=== PATIENT | female | born 1970 | race American Indian/Alaskan Native ===

== ENCOUNTER 2018-11-16 11:28 | Emergency (ER) | payer MEDICAID ==
[2018-11-16 11:42] VITALS: RESP 18
[2018-11-16 11:43] VITALS: BMI 34.3
--- NOTE | 2018-11-16 12:01 | ED PDOC ---
Arrival/HPI - General Chief Complaint: Trauma Time Seen by Provider: 11/16/18 11:43 Historian: Patient - History of Present Illness Narrative History of Present Illness (Text): 11/16/18 11:58 A 48 year old female presents to the emergency department complaining of injuries s/p slip and fall prior to arrival. Patient reports states she was at [employer] and she slipped on wet floor while there, injuring her left hip/back/neck/hand. Patient denies any head trauma, LOC, numbness/tingling, or any other complaints at this time. Admits to smoking and occasional drinking. Time/Duration: Prior to Arrival Associated Symptoms (Text): 11/16/18 13:17 Mechanical fall on a wet floor at [employer] just prior to arrival injuring her neck back left hand and left hip. No head trauma or loss of consciousness. Past Medical History - Provider Review Nursing Documentation Reviewed: Yes - Infectious Disease Hx of Infectious Diseases: None - Reproductive Menopause: No - Pulmonary Hx Bronchitis: Yes - Musculoskeletal/Rheumatological Hx Herniated Disk: Yes - Psychiatric Hx Substance Use: No - Surgical History Hx Section: Yes - Anesthesia Hx Anesthesia: Yes Hx Anesthesia Reactions: No - Suicidal Assessment Feels Threatened In Home Enviroment: No Family/Social History - Physician Review Nursing Documentation Reviewed: Yes Family/Social History: No Known Family HX Smoking Status: Never Smoked Hx Alcohol Use: No Hx Substance Use: No Allergies/Home Meds Allergies/Adverse Reactions: Allergies No Known Allergies Allergy (Verified 11/15/18 17:26) Review of Systems - Physician Review All systems were reviewed & negative as marked: Yes - Review of Systems Constitutional: absent: Other (no head trauma) Respiratory: absent: SOB Cardiovascular: absent: Chest Pain Musculoskeletal: Back Pain (left-side), Neck Pain (left-side), Other (left-side pain to hip and hand as well) Neurological: absent: Headache, Dizziness, Other (no LOC, no numbness/tingling) Physical Exam Vital Signs Reviewed: Yes Vital Signs Temp Pulse Resp BP Pulse Ox 11/16/18 11:41 98.1 F 81 18 118/80 99 Temperature: Afebrile Blood Pressure: Normal Pulse: Regular Respiratory Rate: Normal Appearance: Positive for: Well-Appearing, Non-Toxic, Comfortable Pain Distress: None Mental Status: Positive for: Alert and Oriented X 3 - Systems Exam Head: Present: Atraumatic, Normocephalic Mouth: Present: Moist Mucous Membranes Pharnyx: No: ERYTHEMA, EXUDATE, TONSILS ENLARGED Neck: Present: Normal Range of Motion, Paraspinal Tenderness (left-side). No: MIDLINE TENDERNESS Respiratory/Chest: Present: Clear to Auscultation, Good Air Exchange. No: Respiratory Distress, Accessory Muscle Use Cardiovascular: Present: Regular Rate and Rhythm, Normal S1, S2. No: Murmurs Abdomen: No: Tenderness, Distention, Peritoneal Signs Back: Present: Paraspinal Tenderness (left-side), Other (mild trapezius left- side tenderness). No: Midline Tenderness, Pain with Leg Raise Upper Extremity: Present: Normal ROM, NORMAL PULSES, Tenderness (mild left dorsal hand tenderness, normal ROM, no skin changes), Neurovascularly Intact. No: Edema, Swelling, Erythema, Deformity Lower Extremity: Present: NORMAL PULSES, Normal ROM (hip), Tenderness (mild left lateral hip tenderness), Neurovascularly Intact, Other (normal weight bearing to hip, no skin changes). No: Edema, CALF TENDERNESS, Swelling, Erythema, Deformity Neurological: Present: GCS=15, CN II-XII Intact, Speech Normal, Motor Func Grossly Intact Skin: Present: Warm, Dry, Normal Color. No: Rashes Psychiatric: Present: Alert, Oriented x 3, Normal Insight, Normal Concentration Medical Decision Making ED Course and Treatment: 11/16/18 12:03 Impression: 48 year old female with left hip/back/neck/hand pain s/p slip and fall. Physical exam shows paraspinal tenderness to neck/back; mild trapezius left-side tenderness; mild left dorsal hand tenderness with no skin changes and normal ROM; mild left lateral hip tenderness with no skin changes, normal weight bearing, normal ROM; no other acute findings on examination. Plan: -- Cervical Spinal X-Ray -- Left Hand X-Ray -- Left Hip X-Ray -- Lumbar Spinal X-Ray -- Pelvis X-Ray -- Toradol -- POC Urine Test Progress Notes: - RAD Interpretation Radiology Orders: 11/16/18 11:50 CERVICAL SPINE >18YR W/OBLIQUE [RAD] Stat LS SPINE WITH OBL > 18 YRS OLD [RAD] Stat 11/16/18 11:51 HAND LEFT 3 VIEWS ROUTINE [RAD] Stat Hip Left [HIP MIN 2V W/ PELVIS LT] [RAD] Stat 11/16/18 11:53 PELVIS ONE VIEW [RAD] Stat Cervical spine shows no fracture or dislocation. Lumbosacral spine shows no fracture or dislocation. Left hip and pelvis shows no fracture or dislocation. Left hand shows no fracture or dislocation. Computer Systems Hardware Analyst: ED Physician - Medication Orders Current Medication Orders: Discontinued Medications Ketorolac Tromethamine (Toradol) 15 mg IM ONCE ONE Stop: 11/16/18 11:54 - Scribe Statement The provider has reviewed the documentation as recorded by the Sooibbrittani Jalloh All medical record entries made by the Sooibbrittani were at my direction and personally dictated by me. I have reviewed the chart and agree that the record accurately reflects my personal performance of the history, physical exam, medical decision making, and the department course for this patient. I have also personally directed, reviewed, and agree with the discharge instructions and disposition. Disposition/Present on Arrival - Present on Arrival Any Indicators Present on Arrival: No History of DVT/PE: No History of Uncontrolled Diabetes: No Urinary Catheter: No History of Decub. Ulcer: No History Surgical Site Infection Following: None - Disposition Have Diagnosis and Disposition been Completed?: Yes Diagnosis: Cervical strain, Lumbar strain, Sprain of left hip, Sprain of left hand Disposition: HOME/ ROUTINE Disposition Time: 13:19 Patient Plan: Discharge Condition: GOOD Discharge Instructions (ExitCare): Lumbar Muscle Strain (DC), Lower Extremity Muscle Strain, Cervical Muscle Strain (DC) Additional Instructions: Rest ice and elevation. Tylenol or Advil as directed on bottle as needed. Follow-up with PMD. Follow-up in ER as needed. Prescriptions: Cyclobenzaprine [Flexeril] 5 mg PO Q8 #15 tab Forms: [employer] ([place]), WORK NOTE
[2018-11-16 13:35] VITALS: BP 121/59; PULSE 75; TEMP 98; O2SAT 98
--- NOTE | 2018-11-16 13:46 | RAD ---
PROCEDURE: Left Hand Radiographs. HISTORY: Trauma. COMPARISON: None. FINDINGS: BONES: Normal. No fracture. JOINTS: Normal. No osteoarthritic changes. SOFT TISSUES: Normal. OTHER FINDINGS: None. IMPRESSION: Normal left hand radiographs.
--- NOTE | 2018-11-16 13:47 | RAD ---
Date of service: 11/16/2018 PROCEDURE: Cervical Spine Radiographs. HISTORY: Pain. COMPARISON: None available. FINDINGS: BONES: Alignment maintained. No fracture. Dens Intact. DISC SPACES: Normal. SOFT TISSUES: Normal. No prevertebral soft tissue swelling. OTHER FINDINGS: None. IMPRESSION: Unremarkable cervical spine radiographs
--- NOTE | 2018-11-16 13:47 | RAD ---
Date of service: 11/16/2018 PROCEDURE: Radiographs of the Lumbar Spine. HISTORY: trauma COMPARISON: No prior. FINDINGS: BONES: Normal alignment. No listhesis. No fracture. DISC SPACES: Unremarkable. OTHER FINDINGS: None. IMPRESSION: Unremarkable radiographs of the lumbar spine.
--- NOTE | 2018-11-16 13:49 | RAD ---
PROCEDURE: Left Hip X-ray Radiographs. HISTORY: trauma COMPARISON: None. FINDINGS: BONES: Normal. No fracture. JOINTS: Normal. SOFT TISSUES: Normal. OTHER FINDINGS: None. IMPRESSION: Normal left hip radiographs.
== END 2018-11-16 13:34 | disposition home or self-care (01) ==
LOC: ED 11:28
DX: S16.1XXA Strain of muscle, fascia and tendon at neck level, initial encounter (principal); S39.012A Strain of muscle, fascia and tendon of lower back, initial encounter; S73.102A Unspecified sprain of left hip, initial encounter; S63.92XA Sprain of unspecified part of left wrist and hand, initial encounter; W01.0XXA Fall on same level from slipping, tripping and stumbling without subsequent striking against object, initial encounter; Y92.512 Supermarket, store or market as the place of occurrence of the external cause
CPT/HCPCS: 72050; 72110; 73130; 73502; 81025; 96372; 99285; J1885